=== PATIENT | female | born 1955 | race Asian ===

== ENCOUNTER 2019-03-31 18:44 | Emergency (ER) | payer OTHER ==
[~2019-03-31] VITALS: Ht 175.3 cm; Wt 97.5 kg
[2019-03-31 18:44] VITALS: TEMP 97.7
[2019-03-31 19:34] LABS: PLATELET COUNT 267 K/uL (152-353)
[2019-03-31 19:41] LABS: POTASSIUM 2.5 mmol/L (3.6-5.2)
[2019-03-31 21:18] VITALS: BP 135/80
[2019-04-01] MEDS ORDERED: B-12 COMPL1000 MCG/M IM (04:45)
[2019-04-01] MEDS ORDERED: FERROUS SULF325 M1 PO (04:47)
[2019-04-01] MEDS ORDERED: KP FOLIC ACID1 MG PO (04:48)
[2019-04-01] MEDS ORDERED: FURO20TA67 PO (04:49)
[2019-04-01] MEDS ORDERED: GABA300C2 PO (04:57)
[2019-04-01] MEDS ORDERED: ZIPR20IN IM (04:59)
[2019-04-01] MEDS ORDERED: HYDROCHLOROT50 MG PO (05:00)
[2019-04-01] MEDS ORDERED: LISI20TA11 PO (05:02)
[2019-04-01] MEDS ORDERED: INVEGA SUS39 MG/0.25 IM (05:02)
[2019-04-01] MEDS ORDERED: MELATONIN PO (05:04)
[2019-04-01] MEDS ORDERED: GNP CLEARLAX PO (05:06)
[2019-04-01] MEDS ORDERED: POTA10CA3 PO (05:07)
[2019-04-01] MEDS ORDERED: SERT100T PO (05:08)
[2019-04-01] MEDS ORDERED: TRAZ100T PO (05:09)
[2019-04-01] MEDS ORDERED: ERGOCALCIF50000 UNIT PO (05:11)
[2019-04-01] MEDS ORDERED: QUETIAPINE50 MG PO (05:13)
[2019-04-01] MEDS ORDERED: SEROQUEL25 MG PO (05:14)
== END 2019-03-31 21:20 | disposition other institution (70) ==
LOC: ED 18:44
PROVIDERS: Family Medicine
DX: F22 Delusional disorders (principal); R44.0 Auditory hallucinations; R44.1 Visual hallucinations; E87.6 Hypokalemia; Z04.6 Encounter for general psychiatric examination, requested by authority
CPT/HCPCS: 36415; 80053; 81000; 85027; 93005; 99283; 99285

== ENCOUNTER 2019-04-24 21:20 | Observation (INO) | payer OTHER ==
[~2019-04-24] VITALS: Ht 175.3 cm; Wt 97.5 kg
[~2019-04-24 21:20] MED LIST: B-12 COMPL1000 MCG/M IM; ERGOCALCIF50000 UNIT PO; FERROUS SULF325 M1 PO; FURO20TA67 PO; GABA300C2 PO; GNP CLEARLAX PO; HYDROCHLOROT50 MG PO; INVEGA SUS39 MG/0.25 IM; KP FOLIC ACID1 MG PO; LISI20TA11 PO; MELATONIN PO; POTA10CA3 PO; QUETIAPINE50 MG PO; SEROQUEL25 MG PO; SERT100T PO; SERT50TA PO; TRAZ100T PO; ZIPR20IN IM; ZIPR80CA PO
[2019-04-24] MEDS ORDERED: HALO5TAB10 PO (21:23)
[2019-04-24] MEDS ORDERED: HALO50IN4 IM (21:23)
[2019-04-24] MEDS ORDERED: INVEGA SUSTENNA IM (21:23)
[2019-04-24 21:45] VITALS: BP 90/40; TEMP 97
[2019-04-24 22:00] VITALS: BP 101/44
[2019-04-24 23:00] VITALS: BP 100/48
[2019-04-24 23:56] LABS: PLATELET COUNT 260 K/uL (152-353)
[2019-04-25] VITALS (19 sets, daily range): BP systolic 82–132; BP diastolic 40–79; TEMP 97–98.4; Ht 175.3 cm; Wt 97.5 kg
[2019-04-25 01:18] LABS: POTASSIUM 4.4 mmol/L (3.6-5.2); SODIUM 142 mmol/L (136-145)
== END 2019-04-25 17:52 | disposition other institution (70) ==
LOC: ICU 21:20
PROVIDERS: Student in an Organized Health Care Education/Training Program; ADMIT Internal Medicine
DX: I10 Essential (primary) hypertension (principal); R00.1 Bradycardia, unspecified; E78.49 Other hyperlipidemia; I50.9 Heart failure, unspecified; D64.89 Other specified anemias; F20.89 Other schizophrenia; G62.89 Other specified polyneuropathies
CPT/HCPCS: 80048; 83735; 84484; 85027; 85730; 99220; G0378; G0379

== ENCOUNTER 2019-10-19 20:41 | Emergency (ER) | payer OTHER ==
[~2019-10-19] VITALS: Ht 175.3 cm; Wt 101.6 kg
[~2019-10-19 20:41] MED LIST changes: +FERROUS SULF325 MG PO; +FOLI1TAB26 PO; +HALO50IN4 IM; +HALO5TAB10 PO; +INVEGA SUSTENNA IM; +MIRALAX 17GM PAK PO; +VITAMIN D50000 UNIT PO
[2019-10-19 21:21] LABS: PLATELET COUNT 281 K/uL (152-353)
[2019-10-19 23:23] VITALS: BP 186/84; TEMP 99.1
[2019-10-20] MEDS ORDERED: FURO40TA93 PO (00:58)
[2019-10-20] MEDS ORDERED: POT CHLORIDE10 MEQ PO (01:00)
== END 2019-10-19 23:42 | disposition other institution (70) ==
LOC: ED 20:41
DX: F20.89 Other schizophrenia (principal); L03.116 Cellulitis of left lower limb; L03.115 Cellulitis of right lower limb; Z11.59 Encounter for screening for other viral diseases; Z04.6 Encounter for general psychiatric examination, requested by authority
CPT/HCPCS: 36415; 80053; 81000; 85027; 87070; 87077; 87186; 87205; 87635; 93005; 96365; 96375; 99285; G2023; J1630; U0003